=== PATIENT | female | born 1990 | race American Indian/Alaskan Native ===

== ENCOUNTER 2021-11-30 23:04 | Emergency (ER) | payer OTHER, MEDICAID ==
[2021-11-30] MEDS ORDERED: ACETAMINOPHEN 325 MG TAB PO ONE (23:39)
[2021-12-01 00:27] VITALS: BP 124/81
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
[2021-12-01] MEDS ORDERED: traMADol 50 MG TAB PO ONE (04:45)
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
== END 2021-12-01 05:38 | disposition home or self-care (01) ==
LOC: ED 23:04
DX: S16.1XXA Strain of muscle, fascia and tendon at neck level, initial encounter (principal); Z79.899 Other long term (current) drug therapy; Z98.890 Other specified postprocedural states; V87.7XXA Person injured in collision between other specified motor vehicles (traffic), initial encounter; Y93.89 Activity, other specified; Y92.488 Other paved roadways as the place of occurrence of the external cause; Y99.8 Other external cause status
CPT/HCPCS: 72040; 99283